=== PATIENT | male | born 1995 | race Caucasian/White ===

== ENCOUNTER 2018-06-18 02:03 | Emergency (ER) | payer SELFPAY ==
[2018-06-18] MEDS ORDERED: Pantoprazole 40 MG Vial IVPUSH ONE (02:23)
[2018-06-18] MEDS ORDERED: Sodium Chloride 0.9% 1,000 ML IV ONE (02:23)
[2018-06-18] MEDS ORDERED: Sodium Chloride 0.9% 2.5 ML Syringe FLUSH PRN (02:23)
[2018-06-18] MEDS ORDERED: Sodium Chloride 0.9% 10 ML Syringe FLUSH PRN (02:23)
[2018-06-18] MEDS ORDERED: Ondansetron 4 MG/2 ML SDV IVPUSH ONE (02:23)
[2018-06-18] MEDS ORDERED: Ketorolac 30 MG/ML SDV IVPUSH ONE (02:23)
[2018-06-18] MEDS ORDERED: Morphine 2 MG/ML Syringe IVPUSH ONE (02:23)
--- NOTE | 2018-06-18 02:27 | EDM.PDOC ---
ED HPI GENERAL MEDICAL PROBLEM - General Chief Complaint: Abdominal Pain Stated Complaint: ABDOMINAL PAIN Time Seen by Provider: 06/18/18 02:17 - History of Present Illness INITIAL COMMENTS - FREE TEXT/NARRATIVE: HISTORY AND PHYSICAL: History of present illness: The patient is a 22-year-old male with no significant GI history or abdominal surgical history who presents with complaints of mid abdominal pain that started approximately 4 hours ago that feels sharp and stabbing. He says that he has had many episodes of this in the past over the last one year sometimes 3 times a week lasting several hours. He says he has not seen a physician for this nor has he taken any medication for it. He does not identify any triggers such as food triggers and has no history of food intolerance. He does not get nausea or vomiting with this pain nor does he have diarrhea. His last bowel movement was not black or bloody and was not diarrhea. He has no flank pain no urinary complaints no upper respiratory symptoms chest pain or shortness of breath. He has not had any fevers with the pain today or in the past. He says he never tried any antacids for this. He denies any chronic alcohol use or over- the-counter med use. He points just to the left of the umbilicus as the site of pain but says that it migrates all over his abdomen. Review of systems: As per history of present illness and below otherwise all systems reviewed and negative. Past medical history: As per history of present illness and as reviewed below otherwise noncontributory. Surgical history: As per history of present illness and as reviewed below otherwise noncontributory. Social history: No reported history of drug or alcohol abuse. Family history: As per history of present illness and as reviewed below otherwise noncontributory. Physical exam: General: Well-developed well-nourished thin man who is nontoxic and vital signs are noted by me. He looks somewhat uncomfortable in the room but he can move easily and is cooperative HEENT: Atraumatic, normocephalic, negative for conjunctival pallor or scleral icterus, mucous membranes moist, throat clear, neck supple, nontender, trachea midline. Lungs: Clear to auscultation, breath sounds equal bilaterally, chest nontender. Heart: S1S2, regular rate and rhythm no overt murmurs Abdomen: Soft, nondistended, bowel sounds are hypoactive and the abdomen is scaphoid. There is no tympany on percussion and there is diffuse abdominal tenderness more on the left upper and left lower quadrant as well as right lower quadrant. There is some voluntary guarding but no involuntary guarding or rebound. Negative for masses or hepatosplenomegaly. Negative for costovertebral tenderness. Pelvis: Stable nontender. Genitourinary: Deferred. Rectal: Deferred. Extremities: Atraumatic, Neurovascular unremarkable. Full range of motion without defects or deficits and no pedal edema Neuro: Awake, alert, oriented. Cranial nerves II through XII unremarkable. Cerebellum unremarkable. Motor and sensory unremarkable throughout. Exam nonfocal. Diagnostics: CBC CMP amylase lipase lactic acid H. pylori UA with reflex culture CT scan of the abdomen and pelvis Therapeutics: IV fluids Zofran Protonix Toradol morphine but all 0517: I discussed all testing results with the patient and girlfriend at bedside as well as with our surgeon associate application developer Dr. Machado. On my reevaluation the patient still says he has some discomfort but it is significantly better and on palpation he still has tenderness in the mid lower abdomen right lower quadrant and right mid abdomen without rebound or guarding. I have offered the patient observation admission and have discussed that with Dr. Machado but both the patient and Dr. Machado would prefer to be seen in the clinic later this morning. I've advised the patient to call the clinic at 8:30 in the morning and specifically say that Dr. Machado wants to see him and have advised them to push hydration and avoid caffeinated products and only eat a bland diet this morning as tolerated. I will give him some tramadol here in the ED and want him to not have a prescription for any pain meds until he sees the doctor in the clinic. Impression: Acute on chronic episodic abdominal pain, mild leukocytosis and possible mesenteric adenitis versus early appendicitis Definitive disposition and diagnosis as appropriate pending reevaluation and review of above. Abdomen Pain Score (Numeric/FACES): 8 - Related Data Allergies Allergy/AdvReac Type Severity Reaction Status Date / Time No Known Allergies Allergy Verified 06/18/18 02:15 Home Meds: Home Meds . [No Known Home Meds] 06/18/18 [History] Past Medical History HEENT History: Reports: None Cardiovascular History: Reports: None Respiratory History: Reports: None Gastrointestinal History: Reports: None Genitourinary History: Reports: None Musculoskeletal History: Reports: None Neurological History: Reports: None Psychiatric History: Reports: None Endocrine/Metabolic History: Reports: None Hematologic History: Reports: None Immunologic History: Reports: None Oncologic (Cancer) History: Reports: None Dermatologic History: Reports: None - Infectious Disease History Infectious Disease History: Reports: None - Past Surgical History Head Surgeries/Procedures: Reports: None Social & Family History - Family History Family Medical History: Noncontributory - Tobacco Use Smoking Status *Q: Never Smoker - Caffeine Use Caffeine Use: Reports: Energy Drinks - Recreational Drug Use Recreational Drug Use: No ED ROS GENERAL - Review of Systems Review Of Systems: ROS reveals no pertinent complaints other than HPI. ED EXAM, GENERAL - Physical Exam Exam: See Below (See dictation) Course - Vital Signs Last Recorded V/S: Last Vital Signs Temp 36.4 C 06/18/18 04:10 Pulse 71 06/18/18 04:10 Resp 18 06/18/18 02:15 BP 106/57 L 06/18/18 04:10 Pulse Ox 98 06/18/18 04:10 - Orders/Labs/Meds Orders: Active Orders 24 hr Category Date Time Status Sodium Chloride 0.9% [Saline Flush] Med 06/18/18 02:23 Active 10 ml FLUSH ASDIRECTED PRN Sodium Chloride 0.9% [Saline Flush] Med 06/18/18 02:23 Active 2.5 ml FLUSH ASDIRECTED PRN Saline Lock Insert [OM.PC] Stat Oth 06/18/18 02:23 Ordered Medication Orders Sodium Chloride (Saline Flush) 10 ml FLUSH ASDIRECTED PRN PRN Reason: Keep Vein Open Last Admin: 06/18/18 03:37 Dose: 10 ml Sodium Chloride (Saline Flush) 2.5 ml FLUSH ASDIRECTED PRN PRN Reason: Keep Vein Open Last Admin: 06/18/18 03:37 Dose: 2.5 ml Labs: Laboratory Tests 06/18/18 06/18/18 06/18/18 Range/Units 02:45 02:45 02:45 WBC 13.89 H (4.0-11.0) K/uL RBC 5.12 (4.50-5.90) M/uL Hgb 15.8 (13.0-17.0) g/dL Hct 45.2 (38.0-50.0) % MCV 88.3 (80.0-98.0) fL MCH 30.9 (27.0-32.0) pg MCHC 35.0 (31.0-37.0) g/dL RDW Std Deviation 38.8 (28.0-62.0) fl RDW Coeff of Nikko 12 (11.0-15.0) % Plt Count 224 (150-400) K/uL MPV 10.30 (7.40-12.00) fL Neut % (Auto) 81.3 H (48.0-80.0) % Lymph % (Auto) 11.2 L (16.0-40.0) % Mcnairy % (Auto) 6.8 (0.0-15.0) % Eos % (Auto) 0.6 (0.0-7.0) % Baso % (Auto) 0.1 (0.0-1.5) % Neut # (Auto) 11.3 H (1.4-5.7) K/uL Lymph # (Auto) 1.6 (0.6-2.4) K/uL Mcnairy # (Auto) 1.0 H (0.0-0.8) K/uL Eos # (Auto) 0.1 (0.0-0.7) K/uL Baso # (Auto) 0.0 (0.0-0.1) K/uL Nucleated RBC % 0.0 /100WBC Nucleated RBCs # 0 K/uL Lactate 0.8 (0.20-2.00) mmol/L Sodium 140 (136-148) mmol/L Potassium 3.9 (3.5-5.1) mmol/L Chloride 105 (98-107) mmol/L Carbon Dioxide 25.7 (21.0-32.0) mmol/L BUN 22 H (7.0-18.0) mg/dL Creatinine 1.1 (0.8-1.3) mg/dL Est Cr Clr Drug Dosing 104.43 mL/min Estimated GFR (MDRD) > 60.0 ml/min Glucose 96 (74-106) mg/dL Calcium 8.9 (8.5-10.1) mg/dL Total Bilirubin 0.6 (0.2-1.0) mg/dL AST 25 (15-37) IU/L ALT 28 (14-63) IU/L Alkaline Phosphatase 76 (46-116) U/L Total Protein 7.5 (6.4-8.2) g/dL Albumin 4.1 (3.4-5.0) g/dL Globulin 3.4 (2.6-4.0) g/dL Albumin/Globulin Ratio 1.2 (0.9-1.6) Amylase 68 (25-115) U/L Lipase 103 (73-393) U/L Urine Color Urine Appearance Urine pH (5.0-8.0) Ur Specific York (1.001-1.035) Urine Protein (NEGATIVE) mg/dL Urine Glucose (UA) (NEGATIVE) mg/dL Urine Ketones (NEGATIVE) mg/dL Urine Occult Blood (NEGATIVE) Urine Nitrite (NEGATIVE) Urine Bilirubin (NEGATIVE) Urine Urobilinogen (<2.0) EU/dL Ur Leukocyte Esterase (NEGATIVE) H. pylori IgG Antibody (NEG) 06/18/18 06/18/18 Range/Units 02:45 03:26 WBC (4.0-11.0) K/uL RBC (4.50-5.90) M/uL Hgb (13.0-17.0) g/dL Hct (38.0-50.0) % MCV (80.0-98.0) fL MCH (27.0-32.0) pg MCHC (31.0-37.0) g/dL RDW Std Deviation (28.0-62.0) fl RDW Coeff of Nikko (11.0-15.0) % Plt Count (150-400) K/uL MPV (7.40-12.00) fL Neut % (Auto) (48.0-80.0) % Lymph % (Auto) (16.0-40.0) % Mcnairy % (Auto) (0.0-15.0) % Eos % (Auto) (0.0-7.0) % Baso % (Auto) (0.0-1.5) % Neut # (Auto) (1.4-5.7) K/uL Lymph # (Auto) (0.6-2.4) K/uL Mcnairy # (Auto) (0.0-0.8) K/uL Eos # (Auto) (0.0-0.7) K/uL Baso # (Auto) (0.0-0.1) K/uL Nucleated RBC % /100WBC Nucleated RBCs # K/uL Lactate (0.20-2.00) mmol/L Sodium (136-148) mmol/L Potassium (3.5-5.1) mmol/L Chloride (98-107) mmol/L Carbon Dioxide (21.0-32.0) mmol/L BUN (7.0-18.0) mg/dL Creatinine (0.8-1.3) mg/dL Est Cr Clr Drug Dosing mL/min Estimated GFR (MDRD) ml/min Glucose (74-106) mg/dL Calcium (8.5-10.1) mg/dL Total Bilirubin (0.2-1.0) mg/dL AST (15-37) IU/L ALT (14-63) IU/L Alkaline Phosphatase (46-116) U/L Total Protein (6.4-8.2) g/dL Albumin (3.4-5.0) g/dL Globulin (2.6-4.0) g/dL Albumin/Globulin Ratio (0.9-1.6) Amylase (25-115) U/L Lipase (73-393) U/L Urine Color YELLOW Urine Appearance CLEAR Urine pH 5.5 (5.0-8.0) Ur Specific [place] 1.025 (1.001-1.035) Urine Protein NEGATIVE (NEGATIVE) mg/dL Urine Glucose (UA) NEGATIVE (NEGATIVE) mg/dL Urine Ketones NEGATIVE (NEGATIVE) mg/dL Urine Occult Blood NEGATIVE (NEGATIVE) Urine Nitrite NEGATIVE (NEGATIVE) Urine Bilirubin NEGATIVE (NEGATIVE) Urine Urobilinogen 0.2 (<2.0) EU/dL Ur Leukocyte Esterase NEGATIVE (NEGATIVE) H. pylori IgG Antibody NEGATIVE (NEG) Meds: Medications Generic Name Dose Route Start Last Admin Trade Name Freq PRN Reason Stop Dose Admin Sodium Chloride 10 ml 06/18/18 02:23 06/18/18 03:37 Saline Flush FLUSH 10 ml ASDIRECTED PRN Administration Keep Vein Open Sodium Chloride 2.5 ml 06/18/18 02:23 06/18/18 03:37 Saline Flush FLUSH 2.5 ml ASDIRECTED PRN Administration Keep Vein Open Discontinued Medications Generic Name Dose Route Start Last Admin Trade Name Rashid PRN Reason Stop Dose Admin Sodium Chloride 1,000 mls @ 999 mls/hr 06/18/18 02:23 06/18/18 02:40 Normal Saline IV 06/18/18 03:23 999 mls/hr STAT ONE Administration Sodium Chloride Confirm 06/18/18 02:28 06/18/18 02:40 Normal Saline Administered 06/18/18 02:29 20 mls/hr Dose Administration 20 mls @ as directed .ROUTE .STK-MED ONE Iopamidol 100 ml 06/18/18 03:51 06/18/18 03:51 Isovue Multipack-370 (76%) IVPUSH 06/18/18 03:52 100 ml ONETIME STA Administration Ketorolac Tromethamine 30 mg 06/18/18 02:23 06/18/18 02:42 Toradol IVPUSH 06/18/18 02:24 30 mg ONETIME ONE Administration Morphine Sulfate 4 mg 06/18/18 02:23 06/18/18 02:49 Morphine IVPUSH 06/18/18 02:24 4 mg ONETIME ONE Administration Ondansetron HCl 4 mg 06/18/18 02:23 06/18/18 02:42 Zofran IVPUSH 06/18/18 02:24 4 mg ONETIME ONE Administration Pantoprazole Sodium 80 mg 06/18/18 02:23 06/18/18 02:40 Protonix Iv IVPUSH 06/18/18 02:24 80 mg .BOLUS ONE Administration Departure - Departure Time of Disposition: 05:22 Disposition: Home, Self-Care 01 Condition: Good Clinical Impression: Abdominal pain Qualifiers: Abdominal location: generalized Qualified Code(s): R10.84 - Generalized abdominal pain - Discharge Information Referrals: PCP,None [Primary Care Provider] - Forms: ED Department Discharge Additional Instructions: The following information is given to patients seen in the emergency department who are being discharged to home. This information is to outline your options for follow-up care. We provide all patients seen in our emergency department with a follow-up referral. The need for follow-up, as well as the timing and circumstances, are variable depending upon the specifics of your emergency department visit. If you don't have a primary care physician on staff, we will provide you with a referral. We always advise you to contact your personal physician following an emergency department visit to inform them of the circumstance of the visit and for follow-up with them and/or the need for any referrals to a consulting specialist. The emergency department will also refer you to a specialist when appropriate. This referral assures that you have the opportunity for followup care with a specialist. All of these measure are taken in an effort to provide you with optimal care, which includes your followup. Under all circumstances we always encourage you to contact your private physician who remains a resource for coordinating your care. When calling for followup care, please make the office aware that this follow-up is from your recent emergency room visit. If for any reason you are refused follow-up, please contact the [facility] emergency department at and ask to speak to the emergency department charge nurse. [facility] Specialty Care-General Surgery Professional [address] [id number] Please call the clinic tomorrow morning at 8:30 AM and specifically tell the temporary receptionist that you need an appointment this morning with Dr. Machado. Please make sure to tell them that he was woken up and is aware of you and wants to see you this morning. If you have any difficulties please ask to talk to his nurse. Push hydration and eat bland foods as we discussed. Return to ER as needed and as discussed - My Orders Last 24 Hours: My Active Orders 06/18/18 02:23 Sodium Chloride 0.9% [Saline Flush] 10 ml FLUSH ASDIRECTED PRN Sodium Chloride 0.9% [Saline Flush] 2.5 ml FLUSH ASDIRECTED PRN Saline Lock Insert [OM.PC] Stat - Assessment/Plan Last 24 Hours: My Active Orders 06/18/18 02:23 Sodium Chloride 0.9% [Saline Flush] 10 ml FLUSH ASDIRECTED PRN Sodium Chloride 0.9% [Saline Flush] 2.5 ml FLUSH ASDIRECTED PRN Saline Lock Insert [OM.PC] Stat
[2018-06-18] MEDS ORDERED: Sodium Chloride 0.9% 20 ML ONE (02:28)
[2018-06-18 03:19] LABS: CHLORIDE,CL 105 mmol/L (98-107); SODIUM,NA 140 mmol/L (136-148)
[2018-06-18] MEDS ORDERED: Iopamidol 755 MG/ML 500 ML Multipack Bottle IVPUSH STA (03:51)
--- NOTE | 2018-06-18 05:02 | CT ---
INDICATION: Abdominal pain. TECHNIQUE: Multiple axial images were obtained from the diaphragm to the symphysis pubis after administration of 100 mL of Isovue-370 intravenously. Sagittal and coronal re-formatted images were obtained. COMPARISON: None. FINDINGS: The visualized portion of the lung bases are clear. There is no focal liver lesion. The spleen, pancreas, gallbladder and adrenal glands are unremarkable. There is no mass or hydronephrosis seen in the kidneys. There is no evidence of a bowel obstruction. The abdominal aorta is normal in caliber. There is no adenopathy seen. There is no free fluid seen in the abdomen or pelvis. The appendix is visualized in the right lower quadrant measuring 0.6-0.7 cm in diameter. There is no significant inflammation seen around the appendix on this study to suggest acute appendicitis. There is a moderate amount of stool in the colon most pronounced in the ascending colon. There are several prominent lymph nodes in the right lower quadrant. This could be secondary to a mesenteric adenitis. IMPRESSION: 1. Prominent lymph nodes in right lower quadrant which could be secondary to a mesenteric adenitis. 2. Appendix measures up to 0.7 cm in diameter. No inflammation around the appendix to suggest an acute appendicitis. Dictated by Saman Sanchez MD @ 06/18/2018 5:02:20 AM Please note that all CT scans at this facility use dose modulation, iterative reconstruction, and/or weight-based dosing when appropriate to reduce radiation dose to as low as reasonably achievable. Dictated by: Saman Sanchez MD @ 06/18/2018 05:02:26 (Electronically Signed)
[2018-06-18] MEDS ORDERED: traMADol 50 MG Tab PO ONE (05:25)
== END 2018-06-18 05:36 | disposition home or self-care (01) ==
LOC: MW.ED 02:03
DX: R10.84 Generalized abdominal pain (principal); D72.829 Elevated white blood cell count, unspecified
CPT/HCPCS: 36415; 74177; 80053; 81003; 82150; 83605; 83690; 85025; 86677; 96361; 96374; 96375; 99284; A9270; C9113; J1885; J2270; J2405; J7040; Q9967